=== PATIENT | male | born 1965 | race Caucasian/White ===

== ENCOUNTER 2017-08-30 18:57 | Inpatient (IN) | payer OTHER ==
[~2017-08-30] VITALS: Ht 170.2 cm; Wt 123.2 kg
[~2017-08-30 18:57] MED LIST: FURO20TA3 PO; GABA300C10 PO; GLIP10TA13 PO; INDO50CA PO; OLME1TAB28 PO
[2017-08-30] MEDS ORDERED: SODIUM CHLORIDE FLUSH 10ML SYR IVF ONE (19:30)
[2017-08-30 19:55] LABS: BASOPHILS # (AUTO) 0.06 x10^3/uL (0-0.1); BASOPHILS % (AUTO) 1 % (0-1); EOSINOPHILS # (AUTO) 0.35 x10^3/uL (0-0.4); EOSINOPHILS % (AUTO) 4 % (1-7); LYMPHOCYTES # (AUTO) 1.33 x10^3/uL (1-3.4); LYMPHOCYTES % (AUTO) 17 % (22-44); MD NO; MEAN CORPUSCULAR HEMOGLOBIN 28.4 pg (27.5-34.5); MEAN CORPUSCULAR HGB CONC 33.2 g/dL (33.2-36.2); MEAN CORPUSCULAR VOLUME 85.3 fL (81-97); MEAN PLATELET VOLUME 8.9 fL (7.4-10.4); MONOCYTES # (AUTO) 0.67 x10^3/uL (0.2-0.8); MONOCYTES % (AUTO) 8 % (2-9); NEUTROPHILS % (AUTO) 70 % (42-75); PLATELET COUNT 247 x10^3/uL (130-400); RED BLOOD COUNT 4.82 x10^6/uL (4.38-5.82); RED CELL DISTRIBUTION WIDTH 15.5 % (9.4-14.8)
[2017-08-30 20:03] LABS: INTERNATIONAL NORMALIZED RATIO 0.99 (0.93-1.1); PROTHROMBIN TIME 10.2 Seconds (9.6-11.5)
[2017-08-30 20:06] LABS: ALANINE AMINOTRANSFERASE 48 U/L (12-78); ALBUMIN 3.7 g/dL (3.4-5.0); ANION GAP 5 mmol/L (5-15); CALCIUM 8.2 mg/dL (8.5-10.1); CHLORIDE 109 mmol/L (98-107); CREATININE 1.36 mg/dL (0.7-1.3)
[2017-08-30 20:11] LABS: ALKALINE PHOSPHATASE 79 U/L (45-117); BILIRUBIN,TOTAL 0.5 mg/dL (0.2-1.0)
[2017-08-30] MEDS ORDERED: ASPI-496 PO (20:48)
[2017-08-30] MEDS ORDERED: METO25TA35 PO (20:48)
[2017-08-30] MEDS ORDERED: METF500T4 PO (20:48)
[2017-08-30] MEDS ORDERED: ATOR40TA78 PO (20:48)
[2017-08-30] MEDS ORDERED: TICA90TA PO (20:49)
[2017-08-31] VITALS (7 sets, daily range): BP systolic 127–150; BP diastolic 76–88
[2017-08-31 06:15] LABS: TROPONIN I 0.189 ng/mL (0.000-0.045)
[2017-08-31] MEDS ORDERED: hydrALAzine 20 MG/ML, 1ML IVPush PRN (07:30)
[2017-08-31] MEDS ORDERED: POLYETHYLENE GLYCOL 17 GM PACKET PO PRN (07:30)
[2017-08-31] MEDS ORDERED: morphine SULFATE 10 MG/ML, 1ML IVPush PRN (07:30)
[2017-08-31] MEDS ORDERED: BISACODYL 10 MG SUPP PR PRN (07:30)
[2017-08-31] MEDS ORDERED: PROMETHAZINE 25 MG/ML, 1ML IM PRN (07:30)
[2017-08-31] MEDS ORDERED: DOCUSATE 100 MG CAPSULE PO PRN (07:30)
[2017-08-31] MEDS ORDERED: ONDANSETRON 2MG/ML, 2ML IVPush PRN (07:30)
[2017-08-31] MEDS ORDERED: OXYcodone IR 5MG TABLET PO PRN (07:30)
[2017-08-31] MEDS ORDERED: ONDANSETRON ODT 4 MG PO PRN (07:30)
[2017-08-31] MEDS ORDERED: ACETAMINOPHEN 325 MG TABLET PO PRN (07:30)
[2017-08-31 07:48] LABS: HEMOGLOBIN A1C 6.7 % (4.2-6.3)
[2017-08-31 07:50] LABS: FREE T4 (FREE THYROXINE) 1.12 ng/dL (0.76-1.46); THYROID STIMULATING HORMONE 3.24 mIU/L (0.358-3.740)
[2017-08-31] MEDS ORDERED: METOPROLOL TARTRATE 25 MG TABLET PO SCH (09:00)
[2017-08-31] MEDS: HEPARIN 5,000 UNITS/ML, 1ML SQ SCH ×2 (09:12→18:05)
[2017-08-31] MEDS: SODIUM CHLORIDE 0.9% 1,000 ML IV SCH ×3 (09:14→22:25)
[2017-08-31 11:39] LABS: TROPONIN I 0.141 ng/mL (0.000-0.045)
[2017-08-31] MEDS: ASPIRIN 81 MG TABLET EC PO SCH (12:21)
[2017-08-31] MEDS: INSULIN LISPRO 100 UNITS/ML, PEN SQ-INSULIN SCH ×3 (12:21→20:34)
[2017-08-31] MEDS ORDERED: OLME1TAB28 PO (13:53)
[2017-08-31] MEDS ORDERED: METOPROLOL TARTRATE 25 MG TABLET PO ONE (14:30)
[2017-08-31] MEDS: TICAGRELOR 90 MG TABLET PO SCH (20:18)
[2017-08-31] MEDS ORDERED: ATORVASTATIN 40 MG TABLET PO SCH (21:00)
[2017-09-01 01:14] VITALS: BP 150/79
[2017-09-01 03:09] VITALS: BP 145/73
[2017-09-01] MEDS: HEPARIN 5,000 UNITS/ML, 1ML SQ SCH ×2 (03:09→11:00)
[2017-09-01] MEDS: METOPROLOL TARTRATE 25 MG TABLET PO SCH ×2 (03:11→08:28)
[2017-09-01 05:53] LABS: BASOPHILS # (AUTO) 0.05 x10^3/uL (0-0.1); BASOPHILS % (AUTO) 1 % (0-1); EOSINOPHILS % (AUTO) 6 % (1-7); LYMPHOCYTES # (AUTO) 1.32 x10^3/uL (1-3.4); LYMPHOCYTES % (AUTO) 19 % (22-44); MD NO; MEAN CORPUSCULAR HEMOGLOBIN 28.5 pg (27.5-34.5); MEAN CORPUSCULAR HGB CONC 33.6 g/dL (33.2-36.2); MEAN CORPUSCULAR VOLUME 84.8 fL (81-97); MONOCYTES # (AUTO) 0.58 x10^3/uL (0.2-0.8); MONOCYTES % (AUTO) 8 % (2-9); NEUTROPHILS % (AUTO) 67 % (42-75); PLATELET COUNT 206 x10^3/uL (130-400); RED BLOOD COUNT 4.67 x10^6/uL (4.38-5.82); RED CELL DISTRIBUTION WIDTH 15.7 % (9.4-14.8)
[2017-09-01 05:56] LABS: TROPONIN I 0.101 ng/mL (0.000-0.045)
[2017-09-01 05:57] LABS: CHLORIDE 110 mmol/L (98-107)
[2017-09-01 06:24] LABS: ALANINE AMINOTRANSFERASE 38 U/L (12-78); ALBUMIN 3.3 g/dL (3.4-5.0); ALKALINE PHOSPHATASE 71 U/L (45-117); ANION GAP 8 mmol/L (5-15); BILIRUBIN,TOTAL 0.8 mg/dL (0.2-1.0); CALCIUM 8.1 mg/dL (8.5-10.1); CHOL/HDL RATIO 2.5; CHOLESTEROL, TOTAL 75 mg/dL (140-239); CREATININE 0.92 mg/dL (0.7-1.3); HDL CHOL % 40 % (26-37); HDL CHOLESTEROL (DIRECT) 30 mg/dL (40-60); LDL CHOLESTEROL,CALCULATED 16 mg/dL (54-169); LDL/HDL RATIO 0.5 (0.5-3.0); TOTAL PROTEIN 6.4 g/dL (6.4-8.2); TRIGLYCERIDES 146 mg/dL (50-200); VLDL CHOLESTEROL 29 mg/dL (0-25)
[2017-09-01] MEDS: INSULIN LISPRO 100 UNITS/ML, PEN SQ-INSULIN SCH ×2 (07:00→11:00)
[2017-09-01] MEDS: ASPIRIN 81 MG TABLET EC PO SCH (08:27)
[2017-09-01] MEDS: TICAGRELOR 90 MG TABLET PO SCH (08:28)
[2017-09-01 08:37] VITALS: BP 133/77
[2017-09-01 12:44] VITALS: BP 170/85
[2017-09-01] MEDS ORDERED: ISOS30TA8 PO (13:51)
== END 2017-09-01 16:44 | disposition home or self-care (01) | DRG 282 ==
LOC: ED 20:31 → EDIP 21:04 → 5SO 22:18
PROVIDERS: ADMIT Internal Medicine; ATTEND Internal Medicine
DX: I21.4 Non-ST elevation (NSTEMI) myocardial infarction (principal); E11.9 Type 2 diabetes mellitus without complications; E78.5 Hyperlipidemia, unspecified; I10 Essential (primary) hypertension; I25.10 Atherosclerotic heart disease of native coronary artery without angina pectoris; I25.2 Old myocardial infarction; Z79.82 Long term (current) use of aspirin; Z95.5 Presence of coronary angioplasty implant and graft; Z88.0 Allergy status to penicillin
CPT/HCPCS: 36415; 71045; 80053; 80061; 82962; 83036; 83735; 83880; 84439; 84443; 84484; 85025; 85610; 85730; 93005; 99285; J1644; J1815; J7030

== ENCOUNTER 2018-10-03 15:38 | Emergency (ER) | payer OTHER ==
[~2018-10-03] VITALS: Ht 170.2 cm; Wt 120.5 kg
[~2018-10-03 15:38] MED LIST changes: +ASPI-496 PO; +ATOR40TA78 PO; -INDO50CA PO; +INDO50CA5 PO; +ISOS30TA8 PO; +METF500T17 PO; +METO25TA35 PO; +TICA90TA PO
[2018-10-03] MEDS ORDERED: ASPIRIN 81 MG TABLET CHEW PO ONE (16:00)
[2018-10-03 16:33] LABS: BASOPHILS # (AUTO) 0.05 x10^3/uL (0-0.1); BASOPHILS % (AUTO) 1 % (0-1); EOSINOPHILS # (AUTO) 0.24 x10^3/uL (0-0.4); EOSINOPHILS % (AUTO) 3 % (1-7); LYMPHOCYTES # (AUTO) 1.41 x10^3/uL (1-3.4); LYMPHOCYTES % (AUTO) 16 % (22-44); MD NO; MEAN CORPUSCULAR VOLUME 87.9 fL (81-97); MEAN PLATELET VOLUME 9.2 fL (7.4-10.4); MONOCYTES % (AUTO) 7 % (2-9); NEUTROPHILS # (AUTO) 6.57 x10^3/uL (1.8-6.8); NEUTROPHILS % (AUTO) 74 % (42-75); PLATELET COUNT 212 x10^3/uL (130-400); RED BLOOD COUNT 4.87 x10^6/uL (4.38-5.82); RED CELL DISTRIBUTION WIDTH 16.3 % (9.4-14.8)
[2018-10-03 16:42] LABS: ALBUMIN 3.9 g/dL (3.4-5.0); ANION GAP 7 mmol/L (5-15); CALCIUM 9.1 mg/dL (8.5-10.1); CHLORIDE 110 mmol/L (98-107); CREATININE 1.61 mg/dL (0.7-1.3)
[2018-10-03 16:46] LABS: TROPONIN I < 0.015 ng/mL (0.000-0.045)
--- NOTE | 2018-10-03 16:54 | NUR ---
TO ROOM FROM LOBBY. NAD.
[2018-10-03 17:33] VITALS: BP 124/71
--- NOTE | 2018-10-03 17:34 | NUR ---
PT INFORMED OF DISCHARGE, PT AGREEABLE TO POC. VSS. NAD.
--- NOTE | 2018-10-03 17:39 | NUR ---
Patient/Caregiver given discharge instructions and they have confirmed that they understand the instructions. Patient ambulatory with steady gait.
== END 2018-10-03 17:42 | disposition home or self-care (01) ==
LOC: ED 17:30
DX: S29.011A Strain of muscle and tendon of front wall of thorax, initial encounter (principal); I25.10 Atherosclerotic heart disease of native coronary artery without angina pectoris; I25.2 Old myocardial infarction; I10 Essential (primary) hypertension; E11.9 Type 2 diabetes mellitus without complications; G89.29 Other chronic pain; Z88.0 Allergy status to penicillin; X58.XXXA Exposure to other specified factors, initial encounter; Y93.89 Activity, other specified; Y92.89 Other specified places as the place of occurrence of the external cause; Y99.8 Other external cause status
CPT/HCPCS: 36415; 71046; 80048; 82040; 83880; 84484; 85025; 93005; 99284

== ENCOUNTER 2019-07-20 20:23 | Emergency (ER) | payer OTHER ==
[~2019-07-20] VITALS: Ht 170.2 cm; Wt 115.0 kg
[~2019-07-20 20:23] MED LIST changes: +INDO50CA15 PO; -INDO50CA5 PO
[2019-07-20 20:31] VITALS: BP 151/85
[2019-07-20] MEDS ORDERED: NEOSPORIN OINT. PKT 1 PACKET ONE (21:00)
[2019-07-20] MEDS ORDERED: DIPH,PERTUSS(ACELL),TET VAC/PF 0.5 ML IM-VACC ONE ×2 (21:00→21:06)
--- NOTE | 2019-07-20 21:05 | NUR ---
EMT AT BEDSIDE FOR WOUND CLEANING/DRESSING.
== END 2019-07-20 21:24 ==
LOC: ED 21:18
DX: S50.871A Other superficial bite of right forearm, initial encounter (principal); S60.572A Other superficial bite of hand of left hand, initial encounter; E11.9 Type 2 diabetes mellitus without complications; I10 Essential (primary) hypertension; I25.2 Old myocardial infarction; I25.10 Atherosclerotic heart disease of native coronary artery without angina pectoris; W54.0XXA Bitten by dog, initial encounter; Y93.89 Activity, other specified; Y92.89 Other specified places as the place of occurrence of the external cause; Y99.8 Other external cause status
CPT/HCPCS: 90471; 90715; 99283